=== PATIENT | female | born 1955 | race Caucasian/White ===

== ENCOUNTER 2020-03-17 17:56 | Inpatient (IN) ==
[2020-03-17] MEDS ORDERED: Heparin DRIP 25,000 UNITS BAG 25,000 UNITS/500 ML BAG IV SCH (18:30)
[2020-03-17 18:41] LABS: ABS Lymphocytes 2.1 10^3/ul (1.0-4.8); ABS Monocytes 1.2 10^3/ul (0-0.8); ABS Neutrophils 11.1 10^3/ul (1.5-7.7); Eosinophil % 0.1 %; Hematocrit 42 % (35-47); Hemoglobin 14.8 g/dL (12.0-16.0); Lymphocyte % 14.4 %; Mean Corpuscular HGB Conc 35 g/dL (31-36); Mean Corpuscular Hemoglobin 34 pg (27-31); Mean Corpuscular Volume 97 fL (80-97); Mean Platelet Volume 7.7 fL (7.4-10.4); Platelet Count 325 10^3/uL (150-450); Red Blood Count 4.38 10^6 /uL (3.70-4.87); Red Cell Distribution Width 12 % (10-15); White Blood Count 14.4 10^3/uL (3.5-10.8)
[2020-03-17 18:53] LABS: Blood Urea Nitrogen 19 mg/dL (6-24); EGFR African American 118.7 (>60); EGFR Non-African American 98.1 (>60)
[2020-03-17 19:00] LABS: Troponin I 0.04 ng/mL (<0.03)
[2020-03-17] MEDS ORDERED: Heparin 5000 UNITS/ML 1 mL VIAL IV SCH (19:00)
[2020-03-17 19:55] LABS: C Reactive Protein < 1.00 mg/L (<8.01)
[2020-03-17] MEDS ORDERED: Enalaprilat IV 1.25 mg/ml 2 ml VIAL (2.5 MG) IV ONE (20:23)
[2020-03-17] MEDS ORDERED: Metoprolol Tartrate 5 mg VIAL 5 ml VIAL (1 mg/ml) IV ONE (21:24)
[2020-03-17] MEDS ORDERED: Ondansetron 4 mg VIAL 2 MG/ML 2 ml VIAL IV ONE (22:27)
[2020-03-17] MEDS ORDERED: Iohexol 350 (CONTRAST) 500 ML MDV IV ONE (22:31)
[2020-03-17] MEDS ORDERED: Ondansetron 4 mg VIAL 2 MG/ML 2 ml VIAL ONE (22:37)
[2020-03-18 00:01] LABS: ALT 27 U/L (7-52); AST 22 U/L (13-39); Albumin 4.6 g/dL (3.2-5.2); Albumin/Globulin Ratio 1.5 (1-3); Alkaline Phosphatase 53 U/L (34-104); Globulin 3.1 g/dL (2-4); Indirect Bilirubin 1.3 mg/dL (0.3-1.0); Total Protein 7.7 g/dL (6.4-8.9)
[2020-03-18] MEDS ORDERED: Ondansetron 4 mg VIAL 2 MG/ML 2 ml VIAL IV PRN (00:10)
[2020-03-18] MEDS ORDERED: Al Hydrox/Mg Hydrox/Simet LIQ 30 ML UDC PO PRN (00:10)
[2020-03-18] MEDS ORDERED: NS 0.9% 1000 ml BAG 1,000 ML IV SCH ×2 (00:15→19:30)
[2020-03-18 00:36] LABS: Lipase 106 U/L (11.0-82.0)
[2020-03-18] MEDS ORDERED: niCARdipine 0.1MG/ML IVPREMIX 20 MG/200 ML BAG IV SCH ×2 (01:00)
[2020-03-18] MEDS: Pantoprazole VIAL 40 MG VIAL IV SCH (02:39)
[2020-03-18 04:33] LABS: ABS Basophils 0.1 10^3/ul (0-0.2); ABS Lymphocytes 1.6 10^3/ul (1.0-4.8); ABS Monocytes 1.2 10^3/ul (0-0.8); ABS Neutrophils 9.2 10^3/ul (1.5-7.7); Eosinophil % 0.2 %; Hematocrit 38 % (35-47); Lymphocyte % 13.1 %; Mean Corpuscular HGB Conc 34 g/dL (31-36); Mean Corpuscular Hemoglobin 33 pg (27-31); Mean Corpuscular Volume 97 fL (80-97); Mean Platelet Volume 7.4 fL (7.4-10.4); Platelet Count 267 10^3/uL (150-450); Red Blood Count 3.92 10^6 /uL (3.70-4.87); Red Cell Distribution Width 12 % (10-15)
[2020-03-18 04:49] LABS: Albumin 3.8 g/dL (3.2-5.2); Albumin/Globulin Ratio 1.5 (1-3); BUN/Creatinine Ratio 32.8 (8-20); Calcium 8.7 mg/dL (8.6-10.3); EGFR African American 118.7 (>60); EGFR Non-African American 98.1 (>60); Globulin 2.6 g/dL (2-4); Potassium 3.1 mmol/L (3.5-5.0); Total Bilirubin 1.4 mg/dL (0.2-1.0); Total Protein 6.4 g/dL (6.4-8.9)
[2020-03-18] MEDS ORDERED: Heparin 5000 UNITS/ML 1 mL VIAL SUBCUT SCH (06:00)
[2020-03-18 06:02] LABS: Anion Gap 7 mmol/L (2-11); BUN/Creatinine Ratio 33.3 (8-20); Blood Urea Nitrogen 21 mg/dL (6-24); CO2 Carbon Dioxide 25 mmol/L (22-32); Calcium 8.7 mg/dL (8.6-10.3); Chloride 96 mmol/L (101-111); EGFR African American 114.4 (>60); EGFR Non-African American 94.5 (>60); Glucose 108 mg/dL (70-100); Potassium 3.1 mmol/L (3.5-5.0); Sodium 128 mmol/L (135-145)
[2020-03-18] MEDS ORDERED: Potassium Chlor 20 meq TAB.ER PO ONE (07:08)
[2020-03-18 08:38] LABS: Troponin I 0.02 ng/mL (<0.03)
[2020-03-18] MEDS: Cholecalciferol (VIT D3) 1,000 unit TAB PO SCH (09:01)
[2020-03-18 11:49] LABS: Urine Appearance Cloudy; Urine Bilirubin Negative (Negative); Urine Blood 1+ (Negative); Urine Color Yellow; Urine Glucose Negative (Negative); Urine Ketones Negative (Negative); Urine Nitrite Negative (Negative); Urine Protein 2+(100 mg/dL) (Negative); Urine Specific Gravity 1.031 (1.010-1.030); Urine Urobilinogen Negative (Negative)
[2020-03-18 11:51] LABS: Urine Bacteria Absent (Absent); Urine Red Blood Cell 1+(3-5/hpf) (Absent); Urine Squamous Epithelial Cell Present (Absent); Urine White Blood Cell Trace(0-5/hpf) (Absent)
[2020-03-18] MEDS: Potassium Chloride LIQUID 20 MEQ/15 ML LIQUID PO SCH ×2 (18:10→21:49)
[2020-03-18 18:26] LABS: HDL Cholesterol 70.3 mg/dL
[2020-03-18 18:47] LABS: C Reactive Protein 3.76 mg/L (<8.01); Calcium 9.1 mg/dL (8.6-10.3); EGFR African American 63.4 (>60); EGFR Non-African American 52.4 (>60); Magnesium 2.3 mg/dL (1.9-2.7); Potassium 4.4 mmol/L (3.5-5.0)
[2020-03-18 18:49] LABS: Troponin I 0.01 ng/mL (<0.03)
[2020-03-18] MEDS ORDERED: Enoxaparin 60 MG/0.6 ML SYR SUBCUT SCH (19:00)
[2020-03-18] MEDS ORDERED: Enoxaparin 40 MG/0.4 ML SYR SUBCUT SCH (19:00)
[2020-03-18 19:02] LABS: TSH Ultra Thyroid Stim Horm 2.51 mcIU/mL (0.34-5.60)
[2020-03-18] MEDS ORDERED: Enoxaparin 60 MG/0.6 ML SYR SUBCUT ONE (19:07)
[2020-03-18 19:14] LABS: Folate > 20.00 ng/mL (>3.99)
[2020-03-18 19:15] LABS: Vitamin B12 489 pg/mL (180-914)
[2020-03-18] MEDS: Nitroglycerin 0.1 mg/hr PATCH (2.5 mg) TRANSDERM SCH (19:36)
[2020-03-19] MEDS: Pantoprazole VIAL 40 MG VIAL IV SCH (00:30)
[2020-03-19 01:01] LABS: ABS Lymphocytes 1.1 10^3/ul (1.0-4.8); ABS Monocytes 0.9 10^3/ul (0-0.8); ABS Neutrophils 8.6 10^3/ul (1.5-7.7); Eosinophil % 0.1 %; Hematocrit 35 % (35-47); Hemoglobin 12.4 g/dL (12.0-16.0); Lymphocyte % 10.5 %; Mean Corpuscular HGB Conc 36 g/dL (31-36); Mean Corpuscular Hemoglobin 35 pg (27-31); Mean Corpuscular Volume 98 fL (80-97); Mean Platelet Volume 7.9 fL (7.4-10.4); Nucleated Red Blood Cells % 0.1; Platelet Count 270 10^3/uL (150-450); Red Blood Count 3.56 10^6 /uL (3.70-4.87); Red Cell Distribution Width 12 % (10-15); White Blood Count 10.6 10^3/uL (3.5-10.8)
[2020-03-19 01:20] LABS: Activated Partial Thrombo Time 42.3 seconds (26.0-38.0); INR 0.94 (0.82-1.09)
[2020-03-19 06:42] LABS: Hematocrit 39 % (35-47); Hemoglobin 13.4 g/dL (12.0-16.0); Mean Corpuscular HGB Conc 35 g/dL (31-36); Mean Corpuscular Hemoglobin 34 pg (27-31); Mean Corpuscular Volume 98 fL (80-97); Mean Platelet Volume 7.3 fL (7.4-10.4); Platelet Count 291 10^3/uL (150-450); Red Blood Count 3.93 10^6 /uL (3.70-4.87); Red Cell Distribution Width 12 % (10-15); White Blood Count 10.8 10^3/uL (3.5-10.8)
[2020-03-19 07:00] LABS: BUN/Creatinine Ratio 42.5 (8-20); Calcium 8.9 mg/dL (8.6-10.3); EGFR African American 78.8 (>60); EGFR Non-African American 65.1 (>60); Potassium 4.5 mmol/L (3.5-5.0)
[2020-03-19] MEDS ORDERED: Midazolam 5 mg/5 ml VIAL 1 mg/ml 5 ml VIAL (5 mg) ONE ×2 (07:32→09:38)
[2020-03-19] MEDS ORDERED: fentaNYL 100 mcg/2 ml 50 MCG/ML VIAL ONE ×2 (07:32→09:38)
[2020-03-19] MEDS ORDERED: Heparin 1,000 UNIT/ML 10 ml (10,000 UNITS) CATHLAB/DIALYSIS ONE (07:33)
[2020-03-19] MEDS ORDERED: Iohexol 350 (CONTRAST) 200 ML MDV IV ONE (07:33)
[2020-03-19] MEDS ORDERED: nitroGLYCERIN DRIP 0 MCG/0 ML BTL ONE (07:33)
[2020-03-19] MEDS ORDERED: VERAPAMIL 2.5 MG/ML 2 ML VIAL ** 5 mg/2 ml ONE (07:33)
[2020-03-19] MEDS ORDERED: Lidocaine 1% VIAL 10 MG/ML VIAL ONE (07:33)
[2020-03-19] MEDS ORDERED: Heparin 2 UNITS/ML 1000 mls 3,000 ML IV ONE (07:33)
[2020-03-19] MEDS: Aspirin EC 81 mg TAB.EC (enteric coated) PO SCH (08:09)
[2020-03-19] MEDS ORDERED: Nitro Patch/OINT Remove PATCH PATCH OFF SCH (09:00)
[2020-03-19] MEDS ORDERED: niCARdipine 0.1MG/ML IVPREMIX 20 MG/200 ML BAG IV ONE (09:39)
[2020-03-19] MEDS ORDERED: Propofol 10 mg/ml 100 ML BTL 100 ML ONE (09:56)
[2020-03-19 10:36] LABS: HDL Cholesterol 81.7 mg/dL
[2020-03-19] MEDS: Cholecalciferol (VIT D3) 1,000 unit TAB PO SCH (12:27)
[2020-03-19] MEDS: Morphine 2 MG/ML SYRINGE IV PRN (14:28)
[2020-03-19] MEDS: Nitroglycerin 0.1 mg/hr PATCH (2.5 mg) TRANSDERM SCH (15:32)
[2020-03-19 18:58] LABS: Hematocrit 38 % (35-47); Hemoglobin 13.1 g/dL (12.0-16.0); Mean Corpuscular HGB Conc 34 g/dL (31-36); Mean Corpuscular Hemoglobin 34 pg (27-31); Mean Corpuscular Volume 99 fL (80-97); Mean Platelet Volume 7.5 fL (7.4-10.4); Platelet Count 317 10^3/uL (150-450); Red Blood Count 3.86 10^6 /uL (3.70-4.87); Red Cell Distribution Width 12 % (10-15); White Blood Count 12.7 10^3/uL (3.5-10.8)
[2020-03-19 19:07] LABS: ABS Lymphocytes 1.4 10^3/ul (1.0-4.8); ABS Monocytes 1.6 10^3/ul (0-0.8); ABS Neutrophils 9.8 10^3/ul (1.5-7.7); Eosinophil % 0.3 %; Lymphocyte % 10.7 %
[2020-03-20] MEDS ORDERED: Lactated Ringers 1000 ml BAG 1,000 ML IV SCH (06:00)
[2020-03-20] MEDS ORDERED: Famotidine IV 10 MG/ML 2 ml VIAL (20 mg) IV ONE (06:00)
[2020-03-20] MEDS ORDERED: Buffered Lidocaine 1% SYRIN 1 ml INTRADERM ONE (06:00)
[2020-03-20 06:08] LABS: BUN/Creatinine Ratio 47.6 (8-20); Calcium 8.3 mg/dL (8.6-10.3); EGFR African American 114.4 (>60); EGFR Non-African American 94.5 (>60); Potassium 4.2 mmol/L (3.5-5.0)
[2020-03-20] MEDS: Aspirin EC 81 mg TAB.EC (enteric coated) PO SCH ×2 (06:30→10:03)
[2020-03-20] MEDS ORDERED: Lidocaine 2% PF 5 ML VIAL ONE (07:02)
[2020-03-20] MEDS ORDERED: fentaNYL 100 mcg/2 ml 50 MCG/ML VIAL ONE (07:02)
[2020-03-20] MEDS ORDERED: Phenylephrine 40 mcg/mL 10mL (400mcg) SYRINGE ONE (07:02)
[2020-03-20] MEDS ORDERED: Ondansetron 4 mg VIAL 2 MG/ML 2 ml VIAL ONE (07:02)
[2020-03-20] MEDS ORDERED: Ketamine HCL 50 mg/ml 10 ml VIAL (500 MG) ONE (07:02)
[2020-03-20] MEDS ORDERED: Propofol 10 MG/ML 20 ML BTL ONE (07:02)
[2020-03-20] MEDS ORDERED: Midazolam 10 mg/10 ml VIAL 1 mg/ml 10 ml VIAL (10 mg) ONE (07:02)
[2020-03-20] MEDS ORDERED: Dexamethasone IV 4 MG/ML VIAL 1 ml VIAL ONE (07:02)
[2020-03-20] MEDS ORDERED: Phenylephrine IV 10 MG/ML 1 ml VIAL ONE (07:02)
[2020-03-20] MEDS ORDERED: Propofol 10 mg/ml 100 ML BTL 100 ML ONE (07:05)
[2020-03-20] MEDS ORDERED: Famotidine IV 10 MG/ML 2 ml VIAL (20 mg) ONE (07:13)
[2020-03-20] MEDS ORDERED: Heparin 2 UNITS/ML 1000 mls 1,000 ML IV ONE (07:26)
[2020-03-20] MEDS ORDERED: Iohexol 350 (CONTRAST) 200 ML MDV IV ONE ×2 (07:26→08:14)
[2020-03-20] MEDS ORDERED: Lidocaine 1% VIAL 10 MG/ML VIAL ONE (07:26)
[2020-03-20] MEDS ORDERED: nitroGLYCERIN DRIP 25,000 MCG/250 ML BTL ONE (07:26)
[2020-03-20] MEDS ORDERED: VERAPAMIL 2.5 MG/ML 2 ML VIAL ** 5 mg/2 ml ONE (07:26)
[2020-03-20] MEDS ORDERED: Heparin 1,000 UNIT/ML 10 ml (10,000 UNITS) CATHLAB/DIALYSIS ONE (07:26)
[2020-03-20] MEDS ORDERED: hydrALAZINE 20 mg/ml 1 ML Vial IV ONE (08:22)
[2020-03-20] MEDS ORDERED: NS 0.9% 1000 ml BAG 1,000 ML IV SCH (08:45)
[2020-03-20] MEDS ORDERED: Naloxone 0.4 mg VIAL 0.4 mg/ml 1 ml VIAL IV PRN (09:13)
[2020-03-20] MEDS ORDERED: fentaNYL 100 mcg/2 ml 50 MCG/ML VIAL IV PRN (09:13)
[2020-03-20] MEDS ORDERED: Ondansetron 4 mg VIAL 2 MG/ML 2 ml VIAL IV PRN (09:13)
[2020-03-20] MEDS: Morphine 2 MG/ML SYRINGE IV PRN (10:36)
[2020-03-20] MEDS: Cholecalciferol (VIT D3) 1,000 unit TAB PO SCH (10:52)
[2020-03-20] MEDS ORDERED: Rosuvastatin 20 mg TAB (NF) PO ONE (19:00)
[2020-03-20] MEDS ORDERED: Enoxaparin 40 MG/0.4 ML SYR SUBCUT SCH (19:30)
[2020-03-21 06:34] LABS: ABS Eosinophils 0.1 10^3/ul (0-0.6); ABS Monocytes 1.2 10^3/ul (0-0.8); ABS Neutrophils 8.1 10^3/ul (1.5-7.7); Eosinophil % 1.2 %; Hematocrit 34 % (35-47); Hemoglobin 11.4 g/dL (12.0-16.0); Lymphocyte % 17.7 %; Mean Corpuscular HGB Conc 34 g/dL (31-36); Mean Corpuscular Hemoglobin 34 pg (27-31); Mean Corpuscular Volume 99 fL (80-97); Mean Platelet Volume 7.4 fL (7.4-10.4); Platelet Count 253 10^3/uL (150-450); Red Cell Distribution Width 12 % (10-15); White Blood Count 11.5 10^3/uL (3.5-10.8)
[2020-03-21 06:51] LABS: Albumin 3.3 g/dL (3.2-5.2); Albumin/Globulin Ratio 1.6 (1-3); BUN/Creatinine Ratio 43.6 (8-20); Calcium 8.4 mg/dL (8.6-10.3); EGFR African American 133.8 (>60); EGFR Non-African American 110.6 (>60); Globulin 2.1 g/dL (2-4); Potassium 3.7 mmol/L (3.5-5.0); Total Bilirubin 0.9 mg/dL (0.2-1.0); Total Protein 5.4 g/dL (6.4-8.9)
[2020-03-21] MEDS: Aspirin EC 81 mg TAB.EC (enteric coated) PO SCH (08:23)
[2020-03-21] MEDS: Cholecalciferol (VIT D3) 1,000 unit TAB PO SCH (08:23)
[2020-03-21] MEDS ORDERED: Rosuvastatin 20 mg TAB (NF) PO SCH (09:00)
[2020-03-21 12:24] VITALS: BP 145/50
[2020-03-21 12:29] LABS: Hematocrit 35 % (35-47)
== END 2020-03-21 16:15 | disposition home or self-care (01) | DRG 282 ==
LOC: ED 17:56 → ICU 03-18 00:26 → MEDTELE 03-18 05:15
PROVIDERS: ADMIT Internal Medicine; ATTEND Internal Medicine